=== PATIENT | female | born 1970 | race Two or more races ===

== ENCOUNTER 2016-04-30 19:22 | Inpatient (IN) | payer OTHER ==
[~2016-04-30] VITALS: Ht 157.5 cm; Wt 72.5 kg
[~2016-04-30 19:22] MED LIST: ALEVE220 MG; ALEVE220 MG PO; AMLODIPINE BESYL5 MG PO; ASPIRIN81 M1; CRESTOR5 MG PO; ERGOCALCIF50000 UNIT PO; HYALURONATE SODIUM IJ; LO-DOSE ASPIRIN81 M1 PO; PROTONIX40 MG PO; ST. JOSEPH ASPI81 MG PO; SUCRALFATE1 GM/10 ML PO; SUPARTZ IU; VITAMIN D-32000 UNI2 PO
[2016-04-30 20:19] LABS: HEMATOCRIT 44.2 % (36.0-46.0); MCH 28.5 PG (29.0-34.0); MCHC 33.3 G/DL (30.0-36.0); MCV 85.8 FL (83-99); MEAN PLAT.VOLUME 9.2 uM^3 (9.5-12.4); PLATELET COUNT 416 K/uL (156-360); RBC DIS.WIDTH-CV 12.8 % (11.8-14.6); RBC DIS.WIDTH-SD 39.8 % (39-53); RED BLOOD COUNT 5.15 M/uL (3.80-5.20); WHITE BLOOD COUNT 9.6 K/uL (4.1-10.2)
[2016-04-30 20:30] LABS: CHLORIDE 105 mEq/L (99-109); POTASSIUM 3.9 mEq/L (3.7-5.4); SODIUM 142 mEq/L (136-147)
[2016-04-30 20:32] LABS: GLUCOSE 94 mg/dL (70-99)
[2016-04-30 20:33] LABS: ANION GAP 12 MEQ/L (2-14)
[2016-04-30 20:36] LABS: GFR ESTIMATE (CALCULATED) > 59 mL/min/; UREA NITROGEN (BUN) 13 mg/dL (9-23)
[2016-04-30 20:43] LABS: TROP-I INTERPRETATION NEGATIVE; TROPONIN-I < 0.01 ng/mL (0.0-0.30)
[2016-04-30 21:34] LABS: CREATINE KINASE 54 IU/L (1-294)
[2016-04-30] MEDS ORDERED: TRAMADOL HCL50 MG PO (21:47)
[2016-04-30] MEDS ORDERED: ERGOCALCIF50000 UNIT PO (21:47)
[2016-04-30] MEDS ORDERED: MELOXICAM15 MG PO (21:47)
[2016-04-30] MEDS ORDERED: LISINOPRIL5 MG PO (21:48)
[2016-04-30] MEDS ORDERED: SIMVASTATIN10 MG PO (21:48)
[2016-04-30 22:06] LABS: ADD MIUA? YES; BILIRUBIN NEGATIVE; BLOOD LARGE; COLOR YELLOW ((YELLOW)); GLUCOSE (STRIP) NEGATIVE; KETONES NEGATIVE; LEUKOCYTES NEGATIVE; NITRITE NEGATIVE; PROTEIN (STRIP) NEGATIVE; SPECIFIC GRAVITY 1.016 (1.000-1.030); UROBILINOGEN 0.2 MG/DL (0.2-1.0)
[2016-04-30 22:09] LABS: BACTERIA RARE /HPF; EPITHELIAL CELLS RARE /HPF; MUCUS TRACE /LPF; RED BLOOD CELLS 15-20 /HPF (0-5); UCUL ADDED? NO; WHITE BLOOD CELLS 0-5 /HPF (0-5)
[2016-04-30 23:50] VITALS: BP 140/70
[2016-05-01] VITALS (7 sets, daily range): BP systolic 108–140; BP diastolic 70–91
[2016-05-01 04:20] LABS: HEMATOCRIT 40.1 % (36.0-46.0); MCH 28.2 PG (29.0-34.0); MCHC 32.9 G/DL (30.0-36.0); MCV 85.7 FL (83-99); PLATELET COUNT 358 K/uL (156-360); RBC DIS.WIDTH-CV 12.8 % (11.8-14.6); RBC DIS.WIDTH-SD 39.8 % (39-53); RED BLOOD COUNT 4.68 M/uL (3.80-5.20); WHITE BLOOD COUNT 9.3 K/uL (4.1-10.2)
[2016-05-01 04:42] LABS: CHLORIDE 106 mEq/L (99-109); SODIUM 140 mEq/L (136-147)
[2016-05-01 04:44] LABS: GLUCOSE 98 mg/dL (70-99)
[2016-05-01 04:46] LABS: ANION GAP 10 MEQ/L (2-14); TOTAL BILIRUBIN 0.5 mg/dL (0.0-1.0)
[2016-05-01 04:48] LABS: ALKALINE PHOSPHATASE 65 IU/L (3-129); GFR ESTIMATE (CALCULATED) > 59 mL/min/
[2016-05-01 04:49] LABS: UREA NITROGEN (BUN) 14 mg/dL (9-23)
[2016-05-01 05:18] LABS: TROP-I INTERPRETATION NEGATIVE; TROPONIN-I < 0.01 ng/mL (0.0-0.30)
[2016-05-01 13:37] LABS: TROP-I INTERPRETATION NEGATIVE; TROPONIN-I < 0.01 ng/mL (0.0-0.30)
[2016-05-01 20:19] LABS: TROP-I INTERPRETATION NEGATIVE; TROPONIN-I < 0.01 ng/mL (0.0-0.30)
[2016-05-02 03:47] VITALS: BP 115/76
[2016-05-02 07:45] VITALS: BP 104/56
[2016-05-02] MEDS ORDERED: LOPRESSOR25 MG PO (09:30)
== END 2016-05-02 10:54 | disposition home or self-care (01) | DRG 313 ==
LOC: EME 19:22 → 4EAST 22:17 → EDOF 22:17 → 4EAST 23:17
PROVIDERS: Emergency Medicine; Internal Medicine
DX: R07.89 Other chest pain (principal); M50.90 Cervical disc disorder, unspecified, unspecified cervical region; I10 Essential (primary) hypertension; K21.9 Gastro-esophageal reflux disease without esophagitis; E78.5 Hyperlipidemia, unspecified; M19.90 Unspecified osteoarthritis, unspecified site; F41.9 Anxiety disorder, unspecified; M47.812 Spondylosis without myelopathy or radiculopathy, cervical region; Z86.718 Personal history of other venous thrombosis and embolism
CPT/HCPCS: 71020; 72141; 80048; 80053; 81003; 82550; 84484; 85027; 93005; 99281; 99285; J2270; J2405